=== PATIENT | male | born 1945 | race Hispanic/Latino ===

== ENCOUNTER 2016-12-04 06:16 | Inpatient (IN) | payer MEDICARE, BC ==
[2016-12-03 09:00] VITALS: BMI 27.3
--- NOTE | 2016-12-04 06:44 | CP.PCM.HP ---
History of Present Illness - History of Present Illness History of Present Illness: PCP: Dr Easton Orthopedic: Dr Jules Chief Complaint: Pain to the left Hip HPI: 71 years old male with hx of HTN, COPD, Herneated Lumbar disc and osteoarthritis comes with more than 2 years of left hip pain which is progressively becoming worse and not relieved with the Oral analgesics. He has failed conservative management and has come for an elective left Total Hip Replacement. He refers no fever, nausea, vomits, SOB , chest pain nor coughing. 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 FH: Referss Unknown family hx Allergies: ASA Medication: Lexapro 20mg Daily; Norvasc 10mg daily Present on Admission - Present on Admission Any Indicators Present on Admission: No History of DVT/PE: No History of Uncontrolled Diabetes: No Urinary Catheter: No Decubitus Ulcer Present: No Review of Systems - Constitutional Constitutional: absent: Anorexia, Chills, Fever, Headache, Lethargy - EENT Eyes: absent: Diplopia, Floaters, Requires Corrective Lenses, Sees Flashes Ears: absent: Decreased Hearing, Ear Discharge, Tinnitus Nose/Mouth/Throat: absent: Epistaxis, Nasal Congestion, Nasal Discharge, Nasal Obstruction, Sinus Pressure - Cardiovascular Cardiovascular: absent: Chest Pain, Dyspnea, Edema - Respiratory Respiratory: absent: Cough, Wheezing, Stridor, Chest Congestion - Gastrointestinal Gastrointestinal: absent: Constipation, Diarrhea, Nausea, Vomiting - Genitourinary Genitourinary: absent: Dysuria, Flank Pain, Hematuria, Urinary Frequency - Musculoskeletal Musculoskeletal: Arthralgias, Back Pain. absent: Muscle Weakness Additional comments: left hip pain - Integumentary Integumentary: absent: Photosensitivity, Pruritus, Rash, Skin Pain, Sores, Striae, Swelling - Neurological Neurological: absent: Confusion, Focal Weakness, Headaches, Weakness - Psychiatric Psychiatric: Depression. absent: Panic Attacks - Endocrine Endocrine: absent: Palpitations, Polydipsia, Polyphagia, Polyuria - Hematologic/Lymphatic Hematologic: absent: Easy Bleeding, Easy Bruising Past Patient History - Past Medical History & Family History Past Medical History?: Yes - Past Social History Smoking Status: Current Some Days Smoker Chewing Tobacco Use: No Cigar Use: No Alcohol: None Drugs: Denies Home Situation {Lives}: With Family - CARDIAC Hx Cardiac Disorders: Yes Hx Hypertension: Yes - PULMONARY Hx Respiratory Disorders: No - NEUROLOGICAL Hx Neurological Disorder: No - HEENT Hx HEENT Problems: No - RENAL Hx Chronic Kidney Disease: No - ENDOCRINE/METABOLIC Hx Endocrine Disorders: No - HEMATOLOGICAL/ONCOLOGICAL Hx Blood Disorders: No Hx Anemia: No Hx Blood Transfusions: No - INTEGUMENTARY Hx Dermatological Problems: No - MUSCULOSKELETAL/RHEUMATOLOGICAL Hx Musculoskeletal Disorders: Yes Hx Back Pain: Yes - GASTROINTESTINAL Hx Gastrointestinal Disorders: No - GENITOURINARY/GYNECOLOGICAL Hx Genitourinary Disorders: No - PSYCHIATRIC Hx Psychophysiologic Disorder: Yes Hx Depression: Yes - SURGICAL HISTORY Hx Surgeries: Yes Other/Comment: RIGHT HERNIA REPAIR;RIGHT SHOULDER ROTATOR CUFF REPAIR - ANESTHESIA Hx Anesthesia: Yes Hx Anesthesia Reactions: No Hx Malignant Hyperthermia: No Has any member of the family had a problem w/ anesthesia?: No Meds Allergies/Adverse Reactions: Allergies Allergy/AdvReac Type Severity Reaction Status Date / Time aspirin Allergy RASH Verified 12/03/16 09:00 Physical Exam - Constitutional Appears: No Acute Distress - Head Exam Head Exam: ATRAUMATIC, NORMAL INSPECTION, NORMOCEPHALIC - Eye Exam Eye Exam: EOMI, Normal appearance Pupil Exam: NORMAL ACCOMODATION, PERRL - ENT Exam ENT Exam: Mucous Membranes Moist - Neck Exam Neck exam: Positive for: Full Rom, Normal Inspection. Negative for: Lymphadenopathy, Tenderness - Respiratory Exam Respiratory Exam: Clear to Auscultation Bilateral. absent: Rales, Rhonchi, Wheezes - Cardiovascular Exam Cardiovascular Exam: REGULAR RHYTHM, RRR, +S1, +S2. absent: JVD - GI/Abdominal Exam GI & Abdominal Exam: Normal Bowel Sounds, Soft. absent: Mass, Organomegaly, Tenderness - Rectal Exam Rectal Exam: Deferred - Extremities Exam Extremities exam: Positive for: normal inspection. Negative for: calf tenderness Additional comments: left hip pain on Flexion and extension of the hip - Back Exam Back exam: NORMAL INSPECTION. absent: CVA tenderness (L), CVA tenderness (R) - Neurological Exam Neurological exam: Alert, CN II-XII Intact, Oriented x3, Reflexes Normal - Psychiatric Exam Psychiatric exam: Normal Affect, Normal Mood - Skin Skin Exam: Dry, Intact, Normal Color, Warm Assessment & Plan - Assessment and Plan (Free Text) Plan: 71 years old male with hx of HTN, COPD, Herneated Lumbar disc and osteoarthritis comes with more than 2 years of left hip pain which is progressively becoming worse and not relieved with the Oral analgesics. He has failed conservative management and has come for an elective left Total Hip Replacement. #. Left Hip Osteoarthritis with intractable hip pain - Consult [facility] Dr Jules - Orthopedic management - Pain management - DVT prophylaxis post surgery - OT/PT Post surgery #. HTN - Vasotec - Monitor blood pressure #. Depression. - Lexapro This patient was cleared for surgery by his PCP Dr Murphy This patient has HTN that is controlled with vasotec, All laboratory, Radiological , clinical and hemodynamic records were reviewed and I will clear this patient for surgery with mild to moderate Cardiac risk for surgery. - Date & Time Date: 12/04/16 Time: 06:44
[2016-12-04] MEDS ORDERED: SENSORCAINE 0.5% W/EPINEPHRINE 50ML MDV IJ ONE (07:18)
[2016-12-04] MEDS ORDERED: Propofol 10 mg/ml Inj (20 ML) ONE (07:24)
[2016-12-04] MEDS ORDERED: Rocuronium 10 mg/ml (5 ml) ONE ×3 (07:24→11:05)
[2016-12-04] MEDS ORDERED: Lidocaine 4% (Laryng-O-Jet) Kit MM ONE (07:25)
[2016-12-04] MEDS ORDERED: Etomidate 20 mg/10ml Inj IV ONE (07:25)
[2016-12-04] MEDS ORDERED: Succinylcholine 200 mg/10 ml Inj IV ONE (07:25)
[2016-12-04] MEDS ORDERED: Phenylephrine 10 mg/ml Inj ONE (07:29)
[2016-12-04] MEDS ORDERED: Absorbable Gelatin Sponge Size 100 ONE (07:35)
[2016-12-04] MEDS ORDERED: Lactated Ringer's 1,000 ML IV ONE ×3 (08:05→12:30)
[2016-12-04] MEDS ORDERED: Sodium Chloride 0.9% 500 ML IV ONE (08:30)
[2016-12-04] MEDS ORDERED: Neostigmine Methylsulfate 2 MG/2 ML ML IV ONE (12:04)
[2016-12-04] MEDS ORDERED: Naloxone 0.4 mg/ml Inj (Adult) IVP PRN (12:35)
[2016-12-04] MEDS ORDERED: HYDROmorphone 0.5 mg/0.5 ml ISec IVP PRN (13:25)
[2016-12-04] MEDS ORDERED: HYDROmorphone 0.5 mg/0.5 ml ISec ONE (13:28)
[2016-12-04] MEDS ORDERED: Albuterol HFA 90 mcg/actuation (8 g) INH STA (13:30)
[2016-12-04] MEDS ORDERED: BSS 15 ML SOL IR ONE (13:35)
[2016-12-04] MEDS ORDERED: BSS 15 ML 15 ML IR ONE (13:38)
[2016-12-04] MEDS: Albuterol-Ipratrop 3 mg / 0.5 (3 ml) UD INH SCH ×4 (14:14→21:15)
--- NOTE | 2016-12-04 14:20 | RAD ---
PROCEDURE: Left Hip X-ray Radiographs. HISTORY: s/p total hip replacement left hip COMPARISON: Intraoperative fluoroscopy 12/04/2016. FINDINGS: BONES: Pain status post left shoulder replacement with postop changes noted at the left hip soft tissues including skin hafsa. JOINTS: Joint replacement apparatus appears adequately placed. SOFT TISSUES: As above. OTHER FINDINGS: None. IMPRESSION: Status post left shoulder replacement.
[2016-12-04] MEDS: Fluticasone-Salmeterol 250-50mcg Diskus IH SCH ×2 (14:30→21:49)
--- NOTE | 2016-12-04 14:47 | RAD ---
PROCEDURE: Fluoroscopy over 1 hour HISTORY: LEFT HIP COMPARISON: 1 hour none TECHNIQUE: Standard FINDINGS: Total fluoroscopic time (continuous mode) utilized during the procedure: 33.3 seconds. IMPRESSION: Submitted images from the current procedure: 10.0
--- NOTE | 2016-12-04 16:45 | PCM.SURG1 ---
Surgeon's Initial Post Op Note - Surgeon's Notes Surgeon: Dhara Orthopedic Rn: Ebenezer Haywood Type of Anesthesia: General Endo, Block Regional Anesthesia Administered By: Dr Cristhian Renee Pre-Operative Diagnosis: Primary O/A L hip Operative Findings: Primary O/A L hip. synvotis L hip. contracturtes L hip, including iliopsoas tendon Post-Operative Diagnosis: same Operation Performed: L THR. femroal neck osteotomy. arthrotomy/synovectomy/ release iliopsoas tendon. autograft bone graft to acetabulum Specimen/Specimens Removed: bone/synovium Estimated Blood Loss: EBL {In ML}: 150 Blood Products Given: N/A Drains Used: No Drains Post-Op Condition: Good Date of Surgery/Procedure: 12/04/16 Time of Surgery/Procedure: 09:45 (time in room/anaesthesia indcution time m8:05)
[2016-12-04] MEDS: ceFAZolin 1 GM in Sodium Chloride 0.9% 100 ML IVPB SCH (16:56)
--- NOTE | 2016-12-04 17:26 | PCM.ANESB3 ---
Femoral Nerve Block - Femoral Nerve Block Date of Procedure: 12/04/16 Anesthesiologist: Maribeth Pre-Procedure Diagnosis: Left Hip OA Post-Procedure Diagnosis: Same Procedure Performed: Femoral Nerve Block Left - Procedure Femoral Nerve Block: The procedure was explained to the patient that it is for the post-operative pain management. Consent was obtained after a thorough discussion with the patient regarding the benefits and possible complications of local anesthetic block of the femoral nerve at the inguinal crease area. The patient was brought to the operating room and standard monitors were applied. Time-out was held with the circulating nurse to confirm the correct surgery and the appropriate block. Under general anesthesia, patient was placed in supine position with fully extended lower extremities and the _left groin exposed. The femoral artery was then carefully palpated. The ultrasound transducer was then applied to this area in the transverse plane and the femoral nerve was visualized lateral to the femoral artery and underneath the fascia iliaca. After thorough identification, the inguinal crease area was prepped with Chloraprep. At this point, a #22 gauge Stimuplex 2-inch needle was inserted immediately lateral to the femoral artery pulse at the inguinal crease and advanced perpendicularly. The needle was inserted to the ultrasound transducer in-plane towards the femoral nerve in a [id number] direction. Needle advancement was performed carefully under direct ultrasound visualization. Nerve stimulator was used and twitch of the quadriceps muscle was obtained at current of __0.3___ MA. After negative aspiration, __2___cc of __0.5___% ____ropivicaine ____was injected and this was followed with _28 cc of ____0.5___ % ropivicaine . Under ultrasound guidance the local anesthetics were observed spreading below fascia iliaca and around the femoral nerve. The needle was removed intact and sterile dressing was applied. The patient had stable vital signs. The patient tolerated the femoral nerve block well with stable vital signs and was prepared for subsequent surgery.
[2016-12-04] MEDS: PETROLATUM OU SCH (17:28)
[2016-12-04] MEDS: LANOLIN OU SCH (17:28)
[2016-12-04] MEDS: MINERAL OIL OU SCH (17:28)
[2016-12-04] MEDS: Lactated Ringer's 1,000 ML IV SCH (22:37)
[2016-12-05] MEDS: ceFAZolin 1 GM in Sodium Chloride 0.9% 100 ML IVPB SCH (01:28)
[2016-12-05] MEDS ORDERED: MINERAL OIL OU STA (04:39)
[2016-12-05] MEDS ORDERED: PETROLATUM OU STA (04:39)
[2016-12-05] MEDS ORDERED: LANOLIN OU STA (04:39)
[2016-12-05 05:13] LABS: HEMATOCRIT 34.9 % (35.0-51.0); MEAN CELL VOLUME 95.2 fl (80.0-94.0); MEAN CORPUSCULAR HEMOGLOBIN 32.2 pg (27.0-31.0); MEAN CORPUSCULAR HGB CONC 33.8 g/dL (33.0-37.0); RED CELL DISTRIBUTION WIDTH 12.9 % (11.5-14.5); WHITE BLOOD COUNT 12.2 K/uL (4.8-10.8)
[2016-12-05 05:23] LABS: BLOOD UREA NITROGEN 14 mg/dl (9-20); CALCIUM 7.8 mg/dL (8.4-10.2); CARBON DIOXIDE 23 mmol/L (22-30); CHLORIDE 103 mmol/L (98-107); GFR AFRICAN-AMERICAN > 60; GLUCOSE,RANDOM 121 mg/dL (75-110); POTASSIUM 4.2 MMOL/L (3.6-5.0); SODIUM 134 mmol/l (132-148)
[2016-12-05] MEDS: Albuterol-Ipratrop 3 mg / 0.5 (3 ml) UD INH SCH ×4 (08:40→19:42)
--- NOTE | 2016-12-05 08:42 | CP.PCM.PN ---
Subjective - Date & Time of Evaluation Date of Evaluation: 12/05/16 Time of Evaluation: 08:40 - Subjective Subjective: S- pt comfortable PD#1 - s/p R THR Objective - Vital Signs/Intake and Output Vital Signs (last 24 hours): Temp Pulse Resp BP Pulse Ox 98.3 F 102 H 18 136/68 94 L 12/05/16 08:00 12/05/16 08:00 12/05/16 08:00 12/05/16 08:00 12/05/16 08:00 Intake and Output: 12/05/16 12/05/16 06:59 18:59 Intake Total 1250 Balance 1250 - Medications Medications: Current Medications Albuterol/Ipratropium (Duoneb 3 Mg/0.5 Mg (3 Ml) Ud) 3 ml INH RQID [facility] Last Admin: 12/04/16 21:15 Dose: 3 ml Amlodipine Besylate (Norvasc) 5 mg PO DAILY [facility] Docusate Sodium (Colace) 100 mg PO BID [facility] Last Admin: 12/04/16 17:28 Dose: Not Given Escitalopram Oxalate (Lexapro) 20 mg PO HS [facility] Last Admin: 12/04/16 22:38 Dose: 20 mg Hydromorphone HCl (Dilaudid 0.2 Mg/Ml Head Still Operator) 0 mg IV PRN PRN; Protocol PRN Reason: Pain, severe (8-10) Last Admin: 12/04/16 13:04 Dose: 0.2 mg Lactated Ringer's (Lactated Ringer's) 1,000 mls @ 100 mls/hr IV .Q10H [facility] Last Admin: 12/04/16 22:37 Dose: 100 mls/hr Naloxone HCl (Narcan) 0.1 mg IVP Q2M PRN PRN Reason: Agitation Nicotine (Nicoderm Cq) 1 patch TD DAILY [facility] Last Admin: 12/04/16 22:38 Dose: 1 patch Pneumococcal Polyvalent Vaccine (Pneumovax 23 Vaccine) 0.5 ml IM .ONCE ONE Stop: 12/05/16 09:01 Fluticasone/Salmeterol (Advair Diskus 250/50) 1 puff IH Q12 [facility] Last Admin: 12/04/16 21:49 Dose: 1 puff Vitamin A/Vitamin D (Akwa Tears 2%-15%-83%) 1 applic OU TID [facility] Last Admin: 12/04/16 17:28 Dose: 1 applic Zolpidem Tartrate (Ambien) 5 mg PO HS PRN PRN Reason: Sleep Last Admin: 12/04/16 22:37 Dose: 5 mg - Labs Labs: 12/05/16 04:20 12/05/16 04:20 - Additional Findings Additional findings: O/E: stance/gait- defrred R hip wound benign pt with minimal ppost op discomfort Assessment and Plan - Assessment and Plan (Free Text) Assessment: A- s/p R THR P- weight bearing to tolerance orthopedically strable
[2016-12-05] MEDS: Fluticasone-Salmeterol 250-50mcg Diskus IH SCH ×2 (08:47→21:35)
--- NOTE | 2016-12-05 08:49 | CP.PCM.CON ---
History of Present Illness - History of Present Illness History of Present Illness: THE PATIENT IS A 71 YEAR OLD MALE WHO WAS ADMITTED YESTERDAY AND UNDERWENT A LEFT THR FOR SEVERE OA. HE ALSO HAS A HISTORY OF HYPERTENSION, COPD FROM SMOKING, DEPRESSION AND DISC DISEASE. HE ALSO HAD A RIGHT ROTATOR CUFF REPAIR IN THE PAST. I WAS ASKED TO SEE AND FOLLOW HIM ON THIS HOSPITAL STAY BY DR NEIL. HE DENIES CHEST PAIN, SOB OR ANY OTHER MAJOR MEDICAL PROBLEMS SUCH CAD OR DM. IT SHOULD BE NOTED THAT HE HAD MILD SINUS TACHYCARDIA UP TO 110 BPM YESTERDAY EVENING BUT HE HAD SURGICAL PAIN, RECEIVED ALBUTEROL AND WAS NPO PRIOR TO SURGERY. HIS HEART RATE SLOWED TO LESS THAN 100 BPM AFTER PAIN MEDICATIONS AND IV FLUIDS. Past Patient History - Past Medical History & Family History Past Medical History?: Yes - Past Social History Smoking Status: Current Some Days Smoker Chewing Tobacco Use: No Cigar Use: No Alcohol: None Drugs: Denies Home Situation {Lives}: With Family - CARDIAC Hx Cardiac Disorders: Yes Hx Hypertension: Yes - PULMONARY Hx Respiratory Disorders: No - NEUROLOGICAL Hx Neurological Disorder: No - HEENT Hx HEENT Problems: No - RENAL Hx Chronic Kidney Disease: No - ENDOCRINE/METABOLIC Hx Endocrine Disorders: No - HEMATOLOGICAL/ONCOLOGICAL Hx Blood Disorders: No Hx Anemia: No Hx Blood Transfusions: No - INTEGUMENTARY Hx Dermatological Problems: No - MUSCULOSKELETAL/RHEUMATOLOGICAL Hx Musculoskeletal Disorders: Yes Hx Back Pain: Yes - GASTROINTESTINAL Hx Gastrointestinal Disorders: No - GENITOURINARY/GYNECOLOGICAL Hx Genitourinary Disorders: No - PSYCHIATRIC Hx Psychophysiologic Disorder: Yes Hx Depression: Yes - SURGICAL HISTORY Hx Surgeries: Yes Other/Comment: RIGHT HERNIA REPAIR;RIGHT SHOULDER ROTATOR CUFF REPAIR - ANESTHESIA Hx Anesthesia: Yes Hx Anesthesia Reactions: No Hx Malignant Hyperthermia: No Has any member of the family had a problem w/ anesthesia?: No Meds Allergies/Adverse Reactions: Allergies Allergy/AdvReac Type Severity Reaction Status Date / Time aspirin Allergy RASH Verified 12/03/16 09:00 - Medications Medications: Current Medications Albuterol/Ipratropium (Duoneb 3 Mg/0.5 Mg (3 Ml) Ud) 3 ml INH RQID [facility] Last Admin: 12/05/16 08:40 Dose: Not Given Amlodipine Besylate (Norvasc) 5 mg PO DAILY [facility] Docusate Sodium (Colace) 100 mg PO BID [facility] Last Admin: 12/04/16 17:28 Dose: Not Given Escitalopram Oxalate (Lexapro) 20 mg PO HS [facility] Last Admin: 12/04/16 22:38 Dose: 20 mg Hydromorphone HCl (Dilaudid 0.2 Mg/Ml Cardiac Nurse Specialist) 0 mg IV PRN PRN; Protocol PRN Reason: Pain, severe (8-10) Last Admin: 12/04/16 13:04 Dose: 0.2 mg Lactated Ringer's (Lactated Ringer's) 1,000 mls @ 100 mls/hr IV .Q10H [facility] Last Admin: 12/04/16 22:37 Dose: 100 mls/hr Naloxone HCl (Narcan) 0.1 mg IVP Q2M PRN PRN Reason: Agitation Nicotine (Nicoderm Cq) 1 patch TD DAILY [facility] Last Admin: 12/04/16 22:38 Dose: 1 patch Pneumococcal Polyvalent Vaccine (Pneumovax 23 Vaccine) 0.5 ml IM .ONCE ONE Stop: 12/05/16 09:01 Fluticasone/Salmeterol (Advair Diskus 250/50) 1 puff IH Q12 [facility] Last Admin: 12/04/16 21:49 Dose: 1 puff Vitamin A/Vitamin D (Akwa Tears 2%-15%-83%) 1 applic OU TID [facility] Last Admin: 12/04/16 17:28 Dose: 1 applic Zolpidem Tartrate (Ambien) 5 mg PO HS PRN PRN Reason: Sleep Last Admin: 12/04/16 22:37 Dose: 5 mg Physical Exam - Respiratory Exam Respiratory Exam: Clear to Auscultation Bilateral - Cardiovascular Exam Cardiovascular Exam: REGULAR RHYTHM, +S1, +S2 - Additional Findings Additional findings: INSIDE WIREMAN SINUS RHYTHM, R 95 A2 LEAD EKG SINUS, RBBB Results - Vital Signs Recent Vital Signs: Last Vital Signs Temp 98.3 F 12/05/16 08:00 Pulse 102 H 12/05/16 08:00 Resp 18 12/05/16 08:00 BP 136/68 12/05/16 08:00 Pulse Ox 94 L 12/05/16 08:00 - Labs Result Diagrams: 12/05/16 04:20 12/05/16 04:20 Labs: Laboratory Results - last 24 hr 12/04/16 12/04/16 12/05/16 06:30 12:30 04:20 WBC 12.2 H RBC 3.67 L Hgb 11.8 L Hct 34.9 L MCV 95.2 H MCH 32.2 H MCHC 33.8 RDW 12.9 Plt Count 161 Sodium Potassium Chloride Carbon Dioxide Anion Gap BUN Creatinine Est GFR ( Amer) Est GFR (Non-Af Amer) Random Glucose Calcium Blood Type AB POSITIVE Blood Type Confirm AB POSITIVE Antibody Screen Negative Crossmatch See Detail BBK History Checked No verified bt 12/05/16 04:20 WBC RBC Hgb Hct MCV MCH MCHC RDW Plt Count Sodium 134 Potassium 4.2 Chloride 103 Carbon Dioxide 23 Anion Gap 12 BUN 14 Creatinine 0.8 Est GFR ( Amer) > 60 Est GFR (Non-Af Amer) > 60 Random Glucose 121 H Calcium 7.8 L Blood Type Blood Type Confirm Antibody Screen Crossmatch BBK History Checked Assessment & Plan - Assessment and Plan (Free Text) Assessment: LEFT THR HYPERTENSION COPD Plan: CONTINUE AMLODIPINE, PAIN MEDICATIONS, LEXAPRO AND IV FLUIDS FOR REHAB
[2016-12-05] MEDS: Lactated Ringer's 1,000 ML IV SCH ×2 (08:51→18:17)
[2016-12-05] MEDS ORDERED: Pneumococcal 23-Valent Vaccine IM ONE (09:00)
[2016-12-05] MEDS: LANOLIN OU SCH (11:03)
[2016-12-05] MEDS: MINERAL OIL OU SCH (11:03)
[2016-12-05] MEDS: PETROLATUM OU SCH (11:03)
--- NOTE | 2016-12-05 11:20 | CARD ---
APPROVED REPORT EKG Measurement Heart [id number] IN [id number] <Conclusion> Normal sinus rhythm Right bundle branch block Abnormal ECG
[2016-12-05] MEDS: Mineral Oil/White Petrolatum Ophth Oint OU SCH ×2 (12:59→16:43)
[2016-12-05] MEDS ORDERED: Enoxaparin 40 mg Syringe SC STA (13:22)
--- NOTE | 2016-12-05 13:24 | CP.PCM.PN ---
Subjective - Date & Time of Evaluation Date of Evaluation: 12/05/16 Time of Evaluation: 14:00 - Subjective Subjective: Patient seen and examined bedside. Complains of some left hip discomfort.Tachycardic HR 108, afebrile with chest congestion and coughing spells. Patient is active smoker and currently with scattered left hemithorax wheezing. no active issues overnight\ Hgb 11 Objective - Vital Signs/Intake and Output Vital Signs (last 24 hours): Temp Pulse Resp BP Pulse Ox 98.9 F 108 H 18 122/57 L 90 L 12/05/16 12:00 12/05/16 12:00 12/05/16 12:00 12/05/16 12:00 12/05/16 12:00 Intake and Output: 12/05/16 12/05/16 06:59 18:59 Intake Total 1250 Balance 1250 - Medications Medications: Current Medications Albuterol/Ipratropium (Duoneb 3 Mg/0.5 Mg (3 Ml) Ud) 3 ml INH RQID [facility] Last Admin: 12/05/16 11:24 Dose: 3 ml Amlodipine Besylate (Norvasc) 5 mg PO DAILY [facility] Last Admin: 12/05/16 08:48 Dose: 5 mg Artificial Tears (Lacri-Lube) 1 applic OU TID [facility] Last Admin: 12/05/16 12:59 Dose: 1 applic Docusate Sodium (Colace) 100 mg PO BID [facility] Last Admin: 12/05/16 08:48 Dose: 100 mg Enoxaparin Sodium (Lovenox) 40 mg SC STAT [facility] PRN Reason: Protocol Stop: 12/05/16 13:23 Enoxaparin Sodium (Lovenox) 40 mg SC DAILY [facility] PRN Reason: Protocol Escitalopram Oxalate (Lexapro) 20 mg PO HS [facility] Last Admin: 12/04/16 22:38 Dose: 20 mg Lactated Ringer's (Lactated Ringer's) 1,000 mls @ 100 mls/hr IV .Q10H [facility] Last Admin: 12/05/16 08:51 Dose: 100 mls/hr Naloxone HCl (Narcan) 0.1 mg IVP Q2M PRN PRN Reason: Agitation Nicotine (Nicoderm Cq) 1 patch TD DAILY [facility] Last Admin: 12/05/16 08:47 Dose: 1 patch Fluticasone/Salmeterol (Advair Diskus 250/50) 1 puff IH Q12 [facility] Last Admin: 12/05/16 08:47 Dose: 1 puff Zolpidem Tartrate (Ambien) 5 mg PO HS PRN PRN Reason: Sleep Last Admin: 12/04/16 22:37 Dose: 5 mg - Labs Labs: 12/05/16 04:20 12/05/16 04:20 - Constitutional Appears: Non-toxic, No Acute Distress - Head Exam Head Exam: ATRAUMATIC, NORMAL INSPECTION, NORMOCEPHALIC - Eye Exam Eye Exam: EOMI, Normal appearance, PERRL Pupil Exam: NORMAL ACCOMODATION - ENT Exam ENT Exam: Mucous Membranes Moist, Normal Exam - Neck Exam Neck Exam: Full ROM, Normal Inspection - Respiratory Exam Respiratory Exam: Rhonchi (diffuse ), Wheezes (left hemithorax). absent: Accessory Muscle Use - Cardiovascular Exam Cardiovascular Exam: Tachycardia, RRR, +S1, +S2. absent: JVD - GI/Abdominal Exam GI & Abdominal Exam: Soft, Normal Bowel Sounds. absent: Distended, Guarding, Tenderness, Rebound - Rectal Exam Rectal Exam: Deferred - Extremities Exam Extremities Exam: Normal Capillary Refill. absent: Calf Tenderness, Pedal Edema Additional comments: left hip surgical incision with acquacell dressing in place - Back Exam Back Exam: NORMAL INSPECTION - Neurological Exam Neurological Exam: Alert, Awake, CN II-XII Intact, Oriented x3 - Psychiatric Exam Psychiatric exam: Normal Affect - Skin Skin Exam: Dry, Intact, Normal Color, Warm Assessment and Plan - Assessment and Plan (Free Text) Assessment: 71 years old male with hx of HTN, COPD, Herneated Lumbar disc and osteoarthritis comes with more than 2 years of left hip pain which is progressively becoming worse and not relieved with the Oral analgesics. He has failed conservative management and has come for an elective left Total Hip Replacement. today post Left THR #1 1.Left Hip Osteoarthritis s/p left THR #1 pain is controlled. D/c [employer]MENT[employer]AF[employer] INTERN pump and start Percoset PRN Orthopedia Dr Jules following Start PT with weight beraing as tolerated with crutches or walker as per ortho DVt prohylaxis with Lovenox and SCD incentive spirometry 2. COPD patient is active smoker and with wheezing today start Duonebs RTC and mucinex CXR incentive spirometry 3. HTN continue Vasotec controlled 4. Depression on Lexapro 5. DVt prophylaxis SCD and Lovenox
--- NOTE | 2016-12-05 15:50 | OP ---
PROCEDURE DATE: 12/04/2016 PREOPERATIVE DIAGNOSIS: Primary osteoarthritis of the left hip. POSTOPERATIVE DIAGNOSIS: Primary osteoarthritis of the left hip. PROCEDURE: 1. Left total hip replacement arthroplasty, anterior approach. 2. Femoral neck osteotomy. 3. Release of iliopsoas tendon. 4. Autograft and bone graft to the acetabulum. SURGEON: Dr. Enrique Jules MD ASSOCIATE: Daisy Sy, certified registered nursing regulatory assistant. SECOND DOUBLE END TENONER OPERATOR: . TYPE OF ANESTHESIA: General, endotracheal and regional anesthesia. ANESTHESIA BY: Cristhian Stahl MD COMPLICATIONS: No complications. DRAINS: No drains. ESTIMATED BLOOD LOSS: 150 cc. OPERATIVE INDICATIONS: You Gutiérrez is a 72-year-old gentleman, who is a referral from Dr. Cole Bhatt. The patient presents with severe pain and restricted range of motion of the left hip, which has been for a long period of time. The patient has failed a conservative course consisting of activity modification, anti-inflammatory medication therapy. Pros, cons, risks, and benefits of surgical approach were discussed. The possibility of mechanical failure, infection, thromboembolic disease, possibility of secondary or tertiary surgery is discussed. The patient can no longer withstand the discomfort and wished the surgery to be accomplished. Alternative procedures including activity modification and benign neglect were discussed. The patient opts for hip replacement arthroplasty. The patient is fully aware of the differences between the anterior and posterior approach and wished the anterior approach total hip replacement arthroplasty. OPERATIVE PROCEDURE: After having obtained informed consent in the above fashion with satisfactory induction of general and regional anesthesia, after having identified side, site, and procedure and critical pause/time-out, the patient identified as You Gutiérrez is placed in the [facility] traction positioner with the contralateral traction. The left lower extremity was prepped and free-draped in usual fashion for left extremity surgery. the anterior superior iliac spine, greater trochanter. Left hip was prepped and draped in usual fashion for the lower extremity surgery. Under the surgeon's direction, the fluoroscope was positioned, video images were generated and therapeutic decisions were made therefrom. Incisions were accomplished 3 fingerbreadths posterior to the ASIS and one fingerbreadth distal. The incision is superficial to the tensor fascia femoris muscle. It is approximately 4.5 to 5 inches in extent. The skin incision was carried down to the skin and subcutaneous tissue. The muscle is taken down from the fascia using the pickups. This having been accomplished, the Medacta retractor was placed and the fascia between the posterior aspect of the rectus femoris is identified. Hemostasis was controlled with electrocautery. The Medacta retractor was placed deep. The fascia was identified and divided. The lateral femoral circumflex vessels and anterior branch of the lateral femoral circumflex vessels were identified. These are controlled with division and they are clamped with tonsil clamps and control of suture ligature. This having been accomplished, the triangular capsulotomy after the reflected head of the rectus femoris is elevated. The triangle of was brought down to the area of the lesser trochanter and brought across the intertubercular eminence. The having been accomplished, the flap was tagged and brought laterally and Medacta retractors were placed. Verification of position had been accomplished on image intensification views of both the left hip and the contralateral right hip. This having been accomplished the femoral neck osteotomy was accomplished at approximately 18 mm above the lesser trochanter. This having been accomplished, the femoral neck osteotomy was accomplished, the head and neck removed from acetabulum. At this point of time, the acetabulum is debrided, arthrotomy and debridement of labrum was accomplished. So, was carried out at 58 mm and approximately 45 degrees of abduction and 10 degrees of anteversion. This having been accomplished, the reamings are denuded of articular cartilage and this having been accomplished Verification of the position was offered on image intensification. The position was found to be at this point of 58 cm was impacted at approximately 45 degrees of abduction and 10 degrees of anteversion. It should be noted that the reamings were denuded of articular and cartilage had been accomplished. This having been accomplished, attention was turned to the femur. The femur is found to be contracted and at this point with the extremity in external rotation, the tibiofemoral ligament is released and the ischiofemoral ligament is released as well. The area of the conjoint tendon is released and a portion of the iliofemoral is released as well. Hemostasis is controlled with the Aquamantys. At this point, the humerus is mobilized, the retractor was placed medially as well as posteriorly. The canal was found, the neck and trochanter was removed and the paulette was used to find the canal. Using the rasp, the canal was found, was carried to #4 noncemented femoral component. was accomplished with a neutral head and outer bearing. The hip was reduced and found to be stable in all planes. At this point, the iliopsoas tendon is released again to offer release of the contractures. The femur is again exposed. The #4 Medacta was impacted, 28-mm head with is accomplished. The dual mobility hip was reduced and found to be stable in all planes. The wound was thoroughly irrigated. A great deal of time was spent to obtain hemostasis with Aquamantys. Hemostasis having been controlled, the wound was thoroughly irrigated. Verification of position was offered on image intensification views. This having been accomplished, closure of the tensor femoris fascia was accomplished with 0 quill taking great care to avoid injury to the lateral femoral cutaneous nerve as well as closure with quill, Vicryl, hafsa for skin and compression dressing is applied. Verification of the position was offered on image intensification views. Enrique Jules MD
[2016-12-05] MEDS: Oxycodone/Acetaminophen 5/325 mg Tab PO PRN ×2 (18:11→21:39)
[2016-12-05] MEDS: guaiFENesin-DM 600-30 mg ER Tab PO SCH (18:18)
[2016-12-06] MEDS: Lactated Ringer's 1,000 ML IV SCH ×3 (00:26→16:46)
[2016-12-06 04:47] LABS: HEMATOCRIT 33.5 % (35.0-51.0); MEAN CELL VOLUME 95.2 fl (80.0-94.0); MEAN CORPUSCULAR HEMOGLOBIN 31.8 pg (27.0-31.0); MEAN CORPUSCULAR HGB CONC 33.4 g/dL (33.0-37.0); RED CELL DISTRIBUTION WIDTH 13.3 % (11.5-14.5); WHITE BLOOD COUNT 11.7 K/uL (4.8-10.8)
[2016-12-06 05:01] LABS: BLOOD UREA NITROGEN 9 mg/dl (9-20); CALCIUM 7.9 mg/dL (8.4-10.2); CARBON DIOXIDE 26 mmol/L (22-30); CHLORIDE 103 mmol/L (98-107); GFR AFRICAN-AMERICAN > 60; GLUCOSE,RANDOM 130 mg/dL (75-110); POTASSIUM 3.9 MMOL/L (3.6-5.0); SODIUM 133 mmol/l (132-148)
--- NOTE | 2016-12-06 07:16 | CP.PCM.PN ---
Subjective - Date & Time of Evaluation Date of Evaluation: 12/06/16 Time of Evaluation: 09:20 - Subjective Subjective: Patient seen and examined bedside. Still with some left hip discomfort Tachycardic HR 106 Tmax 100.1 O2 Sat 90 % on 2 L O2 via NC WBC 11 K with episodeds of cough and chest congestion , unable to expectorate No acute issues overnight Objective - Vital Signs/Intake and Output Vital Signs (last 24 hours): Temp Pulse Resp BP Pulse Ox 99.2 F 106 H 16 131/67 90 L 12/06/16 05:18 12/06/16 05:18 12/06/16 05:18 12/06/16 05:18 12/06/16 05:18 - Medications Medications: Current Medications Albuterol/Ipratropium (Duoneb 3 Mg/0.5 Mg (3 Ml) Ud) 3 ml INH RQID [facility] Last Admin: 12/05/16 19:42 Dose: 3 ml Amlodipine Besylate (Norvasc) 5 mg PO DAILY [facility] Last Admin: 12/05/16 08:48 Dose: 5 mg Artificial Tears (Lacri-Lube) 1 applic OU TID [facility] Last Admin: 12/05/16 16:43 Dose: 1 applic Docusate Sodium (Colace) 100 mg PO BID [facility] Last Admin: 12/05/16 18:18 Dose: 100 mg Enoxaparin Sodium (Lovenox) 40 mg SC DAILY [facility] PRN Reason: Protocol Escitalopram Oxalate (Lexapro) 20 mg PO HS [facility] Last Admin: 12/05/16 21:36 Dose: 20 mg Guaifenesin/Dextromethorphan (Mucinex-Dm 600-30 Mg) 1 tab PO BID [facility] Last Admin: 12/05/16 18:18 Dose: 1 tab Lactated Ringer's (Lactated Ringer's) 1,000 mls @ 100 mls/hr IV .Q10H [facility] Last Admin: 12/06/16 00:26 Dose: 100 mls/hr Naloxone HCl (Narcan) 0.1 mg IVP Q2M PRN PRN Reason: Agitation Nicotine (Nicoderm Cq) 1 patch TD DAILY [facility] Last Admin: 12/05/16 08:47 Dose: 1 patch Oxycodone/Acetaminophen (Percocet 5/325 Mg Tab) 1 tab PO Q4 PRN PRN Reason: Pain, moderate (4-7) Stop: 12/08/16 13:25 Last Admin: 12/05/16 21:39 Dose: 1 tab Oxycodone/Acetaminophen (Percocet 5/325 Mg Tab) 2 tab PO Q6 PRN PRN Reason: Pain, severe (8-10) Stop: 12/08/16 13:25 Last Admin: 12/05/16 18:11 Dose: 2 tab Fluticasone/Salmeterol (Advair Diskus 250/50) 1 puff IH Q12 [facility] Last Admin: 12/05/16 21:35 Dose: 1 puff Zolpidem Tartrate (Ambien) 5 mg PO HS PRN PRN Reason: Sleep Last Admin: 12/05/16 21:39 Dose: 5 mg - Labs Labs: 12/06/16 04:10 12/06/16 04:10 - Constitutional Appears: Non-toxic, No Acute Distress - Head Exam Head Exam: ATRAUMATIC, NORMAL INSPECTION, NORMOCEPHALIC - Eye Exam Eye Exam: EOMI, Normal appearance, PERRL Pupil Exam: NORMAL ACCOMODATION - ENT Exam ENT Exam: Mucous Membranes Moist, Normal Exam - Neck Exam Neck Exam: Full ROM, Normal Inspection - Respiratory Exam Respiratory Exam: Rhonchi, Wheezes (scattered wheezing ). absent: Accessory Muscle Use, Prolonged Expiratory Phase - Cardiovascular Exam Cardiovascular Exam: Tachycardia, REGULAR RHYTHM, +S1, +S2. absent: JVD - GI/Abdominal Exam GI & Abdominal Exam: Soft, Normal Bowel Sounds. absent: Distended, Guarding, Tenderness, Rebound - Rectal Exam Rectal Exam: Deferred - Extremities Exam Extremities Exam: Full ROM, Normal Inspection. absent: Calf Tenderness, Pedal Edema Additional comments: left hip surgical incision with acquacell dressing in place - Back Exam Back Exam: NORMAL INSPECTION - Neurological Exam Neurological Exam: Alert, Awake, CN II-XII Intact, Oriented x3 - Psychiatric Exam Psychiatric exam: Normal Affect - Skin Skin Exam: Dry, Intact, Normal Color, Warm Assessment and Plan - Assessment and Plan (Free Text) Assessment: 71 years old male with hx of HTN, COPD, Herneated Lumbar disc and osteoarthritis comes with more than 2 years of left hip pain which is progressively becoming worse and not relieved with the Oral analgesics. He has failed conservative management and has come for an elective left Total Hip Replacement. today post Left THR #1 1.Left Hip Osteoarthritis s/p left THR #2 pain is controlled with Percoset PRN Orthopedics Dr Jules following continue PT with weight bearing as tolerated with crutches or walker as per ortho DVt prohylaxis with Lovenox and SCD incentive spirometry 2. COPD patient is active smoker and with wheezing, rhonchi, coughing spells nad chest congestion , unable to expectorate started Duonebs RTC and mucinex CXR shos crowding of tright middle lobe ( pendoing official report ) Wilda nue advair incentive spirometry 3. HTN continue norvasc controlled 4. Depression on Lexapro 5. DVt prophylaxis SCD and Lovenox
[2016-12-06] MEDS: Albuterol-Ipratrop 3 mg / 0.5 (3 ml) UD INH SCH ×4 (07:35→19:09)
[2016-12-06] MEDS: Oxycodone/Acetaminophen 5/325 mg Tab PO PRN ×3 (09:04→21:17)
[2016-12-06] MEDS: Fluticasone-Salmeterol 250-50mcg Diskus IH SCH ×2 (09:05→21:19)
[2016-12-06] MEDS: Mineral Oil/White Petrolatum Ophth Oint OU SCH ×3 (09:05→17:12)
[2016-12-06] MEDS: guaiFENesin-DM 600-30 mg ER Tab PO SCH ×2 (09:06→17:13)
[2016-12-06] MEDS: Enoxaparin 40 mg Syringe SC SCH (09:06)
--- NOTE | 2016-12-06 10:24 | RAD ---
PROCEDURE: CHEST RADIOGRAPH, 1 VIEW. Portable study 07:20. HISTORY: COPD COMPARISON: None available. FINDINGS: LUNGS: Clear. PLEURA: No pneumothorax or pleural fluid seen. CARDIOVASCULAR: No radiographic findings to suggest acute or significant cardiovascular disease. OSSEOUS STRUCTURES: No significant abnormalities. VISUALIZED UPPER ABDOMEN: Normal. OTHER FINDINGS: None. IMPRESSION: No active disease.
--- NOTE | 2016-12-06 13:10 | CP.PCM.PN ---
Subjective - Date & Time of Evaluation Date of Evaluation: 12/06/16 Time of Evaluation: 13:10 - Subjective Subjective: s- PT RESTING COMFORTABLY/minimal post op disocmfort Objective - Vital Signs/Intake and Output Vital Signs (last 24 hours): Temp Pulse Resp BP Pulse Ox 99.1 F 98 H 18 125/65 97 12/06/16 12:24 12/06/16 12:24 12/06/16 12:24 12/06/16 12:24 12/06/16 12:24 - Medications Medications: Current Medications Albuterol/Ipratropium (Duoneb 3 Mg/0.5 Mg (3 Ml) Ud) 3 ml INH RQID [facility] Last Admin: 12/06/16 11:05 Dose: 3 ml Amlodipine Besylate (Norvasc) 5 mg PO DAILY [facility] Last Admin: 12/06/16 09:07 Dose: 5 mg Artificial Tears (Lacri-Lube) 1 applic OU TID [facility] Last Admin: 12/06/16 09:05 Dose: 1 applic Docusate Sodium (Colace) 100 mg PO BID [facility] Last Admin: 12/06/16 09:05 Dose: 100 mg Enoxaparin Sodium (Lovenox) 40 mg SC DAILY [facility] PRN Reason: Protocol Last Admin: 12/06/16 09:06 Dose: 40 mg Escitalopram Oxalate (Lexapro) 20 mg PO HS [facility] Last Admin: 12/05/16 21:36 Dose: 20 mg Guaifenesin/Dextromethorphan (Mucinex-Dm 600-30 Mg) 1 tab PO BID [facility] Last Admin: 12/06/16 09:06 Dose: 1 tab Lactated Ringer's (Lactated Ringer's) 1,000 mls @ 100 mls/hr IV .Q10H [facility] Last Admin: 12/06/16 09:09 Dose: 100 mls/hr Naloxone HCl (Narcan) 0.1 mg IVP Q2M PRN PRN Reason: Agitation Nicotine (Nicoderm Cq) 1 patch TD DAILY [facility] Last Admin: 12/06/16 09:06 Dose: 1 patch Oxycodone/Acetaminophen (Percocet 5/325 Mg Tab) 1 tab PO Q4 PRN PRN Reason: Pain, moderate (4-7) Stop: 12/08/16 13:25 Last Admin: 12/06/16 09:04 Dose: 1 tab Oxycodone/Acetaminophen (Percocet 5/325 Mg Tab) 2 tab PO Q6 PRN PRN Reason: Pain, severe (8-10) Stop: 12/08/16 13:25 Last Admin: 12/05/16 18:11 Dose: 2 tab Fluticasone/Salmeterol (Advair Diskus 250/50) 1 puff IH Q12 [facility] Last Admin: 12/06/16 09:05 Dose: 1 puff Zolpidem Tartrate (Ambien) 5 mg PO HS PRN PRN Reason: Sleep Last Admin: 12/05/16 21:39 Dose: 5 mg - Labs Labs: 12/06/16 04:10 12/06/16 04:10 - Additional Findings Additional findings: Obj syusytemic wnl Muscloskeltal stance/gait-deferred orthopedically stable dressing dry and intact Assessment and Plan - Assessment and Plan (Free Text) Assessment: A- orthopedically stable s/p L THR P orthopedically stable for rehab transfer
[2016-12-07] MEDS: Oxycodone/Acetaminophen 5/325 mg Tab PO PRN (05:38)
[2016-12-07] MEDS: Albuterol-Ipratrop 3 mg / 0.5 (3 ml) UD INH SCH ×2 (07:42→11:33)
[2016-12-07 08:02] LABS: HEMATOCRIT 32.5 % (35.0-51.0); MEAN CELL VOLUME 94.7 fl (80.0-94.0); MEAN CORPUSCULAR HEMOGLOBIN 32.4 pg (27.0-31.0); MEAN CORPUSCULAR HGB CONC 34.2 g/dL (33.0-37.0); RED CELL DISTRIBUTION WIDTH 12.6 % (11.5-14.5); WHITE BLOOD COUNT 12.1 K/uL (4.8-10.8)
[2016-12-07] MEDS: Fluticasone-Salmeterol 250-50mcg Diskus IH SCH (08:34)
[2016-12-07] MEDS: Mineral Oil/White Petrolatum Ophth Oint OU SCH (08:35)
[2016-12-07] MEDS: Enoxaparin 40 mg Syringe SC SCH (08:35)
[2016-12-07] MEDS: guaiFENesin-DM 600-30 mg ER Tab PO SCH (08:35)
--- NOTE | 2016-12-07 10:07 | CP.PCM.PN ---
Subjective - Date & Time of Evaluation Date of Evaluation: 12/07/16 Time of Evaluation: 09:45 - Subjective Subjective: S- pt markedly improved/miinmal post op discomfort Objective - Vital Signs/Intake and Output Vital Signs (last 24 hours): Temp Pulse Resp BP Pulse Ox 98.6 F 97 H 18 125/54 L 95 12/07/16 08:25 12/07/16 08:36 12/07/16 08:25 12/07/16 08:36 12/07/16 08:25 Intake and Output: 12/07/16 12/07/16 06:59 18:59 Intake Total 250 Output Total 600 Balance -350 - Medications Medications: Current Medications Albuterol/Ipratropium (Duoneb 3 Mg/0.5 Mg (3 Ml) Ud) 3 ml INH RQID [facility] Last Admin: 12/07/16 07:42 Dose: 3 ml Amlodipine Besylate (Norvasc) 5 mg PO DAILY [facility] Last Admin: 12/07/16 08:36 Dose: 5 mg Artificial Tears (Lacri-Lube) 1 applic OU TID [facility] Last Admin: 12/07/16 08:35 Dose: 1 applic Docusate Sodium (Colace) 100 mg PO BID [facility] Last Admin: 12/07/16 08:34 Dose: 100 mg Enoxaparin Sodium (Lovenox) 40 mg SC DAILY [facility] PRN Reason: Protocol Last Admin: 12/07/16 08:35 Dose: 40 mg Escitalopram Oxalate (Lexapro) 20 mg PO HS [facility] Last Admin: 12/06/16 21:18 Dose: 20 mg Guaifenesin/Dextromethorphan (Mucinex-Dm 600-30 Mg) 1 tab PO BID [facility] Last Admin: 12/07/16 08:35 Dose: 1 tab Lactated Ringer's (Lactated Ringer's) 1,000 mls @ 100 mls/hr IV .Q10H [facility] Last Admin: 12/06/16 16:46 Dose: Not Given Naloxone HCl (Narcan) 0.1 mg IVP Q2M PRN PRN Reason: Agitation Nicotine (Nicoderm Cq) 1 patch TD DAILY [facility] Last Admin: 12/07/16 08:36 Dose: 1 patch Oxycodone/Acetaminophen (Percocet 5/325 Mg Tab) 1 tab PO Q4 PRN PRN Reason: Pain, moderate (4-7) Stop: 12/08/16 13:25 Last Admin: 12/07/16 05:38 Dose: 1 tab Oxycodone/Acetaminophen (Percocet 5/325 Mg Tab) 2 tab PO Q6 PRN PRN Reason: Pain, severe (8-10) Stop: 12/08/16 13:25 Last Admin: 12/06/16 13:52 Dose: 2 tab Fluticasone/Salmeterol (Advair Diskus 250/50) 1 puff IH Q12 [facility] Last Admin: 12/07/16 08:34 Dose: 1 puff Zolpidem Tartrate (Ambien) 5 mg PO HS PRN PRN Reason: Sleep Last Admin: 12/06/16 21:17 Dose: 5 mg - Labs Labs: 12/07/16 07:30 12/06/16 04:10 - Additional Findings Additional findings: Obj systemic- wnl mild abdominal distention;although improved Musculoskekltal- stance/gait- defrred L hip wound benign N/V intact no gross/ progressive deficits \ Assessment and Plan - Assessment and Plan (Free Text) Assessment: A- s/p L THR P- orthopedically stable for transfer to [facility]
--- NOTE | 2016-12-07 10:37 | CP.PCM.DIS ---
Provider - Provider Date of Admission: 12/04/16 13:37 Attending physician: Darrius Lui Primary care physician: Enrique Jules III, MD Consults: ortho consult Cardiology consult Time Spent in preparation of Discharge (in minutes): 15 Hospital Course - Lab Results Lab Results: Most Recent Lab Values WBC 12.1 K/uL (4.8-10.8) H 12/07/16 07:30 RBC 3.43 Mil/uL (4.40-5.90) L 12/07/16 07:30 Hgb 11.1 g/dL (12.0-18.0) L 12/07/16 07:30 Hct 32.5 % (35.0-51.0) L 12/07/16 07:30 MCV 94.7 fl (80.0-94.0) H 12/07/16 07:30 MCH 32.4 pg (27.0-31.0) H 12/07/16 07:30 MCHC 34.2 g/dL (33.0-37.0) 12/07/16 07:30 RDW 12.6 % (11.5-14.5) 12/07/16 07:30 Plt Count 167 K/uL (130-400) 12/07/16 07:30 Sodium 133 mmol/l (132-148) 12/06/16 04:10 Potassium 3.9 MMOL/L (3.6-5.0) 12/06/16 04:10 Chloride 103 mmol/L (98-107) 12/06/16 04:10 Carbon Dioxide 26 mmol/L (22-30) 12/06/16 04:10 Anion Gap 8 (10-20) L 12/06/16 04:10 BUN 9 mg/dl (9-20) 12/06/16 04:10 Creatinine 0.7 mg/dL (0.8-1.5) L 12/06/16 04:10 Est GFR ( Amer) > 60 12/06/16 04:10 Est GFR (Non-Af Amer) > 60 12/06/16 04:10 Random Glucose 130 mg/dL (75-110) H 12/06/16 04:10 Calcium 7.9 mg/dL (8.4-10.2) L 12/06/16 04:10 Blood Type AB POSITIVE 12/04/16 06:30 Blood Type Confirm AB POSITIVE 12/04/16 12:30 Antibody Screen Negative 12/04/16 06:30 Crossmatch See Detail 12/04/16 06:30 BBK History Checked No verified bt 12/04/16 06:30 - Hospital Course Hospital Course: 71 years old male with hx of HTN, COPD, Herneated Lumbar disc and osteoarthritis comes with more than 2 years of left hip pain which is progressively becoming worse and not relieved with the Oral analgesics. He has failed conservative management and has come for an elective left Total Hip Replacement. today post Left THR #3.Post op patient doing well, pain is controlled. Pt consulted and patient referred to [facility].he also noted to have some wheezing with cought congestion post op and was started on Duonebs, mucinex, advair. Patient is hemodynamically stable. Will discharge patient to [facility] Follow up with Dr. Jules in 1 week 1.Left Hip Osteoarthritis s/p left THR #3 pain is controlled with Percoset PRN Orthopedics Dr Jules following continue PT with weight bearing as tolerated with crutches or walker as per ortho DVt prohylaxis with Lovenox and SCD Continue incentive spirometry Will d/c to [facility] for PT 2. COPD patient is active smoker and with wheezing, rhonchi, coughing spells and chest congestion , unable to expectorate started Duonebs RTC and mucinex CXR showed no active disease Continue advair incentive spirometry Counselled on smoking cessation 3. HTN continue norvasc controlled 4. Depression on Lexapro 5. DVt prophylaxis SCD and Lovenox Discharge Exam - Head Exam Head Exam: ATRAUMATIC, NORMAL INSPECTION, NORMOCEPHALIC - Eye Exam Eye Exam: EOMI, Normal appearance, PERRL Pupil Exam: NORMAL ACCOMODATION - ENT Exam ENT Exam: Mucous Membranes Moist, Normal Exam - Neck Exam Neck exam: Full Rom, Normal Inspection - Respiratory Exam Respiratory Exam: Clear to PA & Lateral, Rhonchi (bilateral), NORMAL BREATHING PATTERN. absent: Wheezes - Cardiovascular Exam Cardiovascular Exam: Tachycardia, REGULAR RHYTHM, RRR, +S1, +S2. absent: JVD - GI/Abdominal Exam GI & Abdominal Exam: Normal Bowel Sounds, Soft. absent: Distended, Guarding, Rebound, Tenderness - Rectal Exam Rectal Exam: Deferred - Extremities Exam Extremities exam: normal inspection, pedal pulses present Additional comments: left hip dressing with acquacell in place - Back Exam Back exam: NORMAL INSPECTION - Neurological Exam Neurological exam: Alert, CN II-XII Intact, Oriented x3, Reflexes Normal - Psychiatric Exam Psychiatric exam: Normal Affect, Normal Mood - Skin Skin Exam: Dry, Intact, Normal Color, Warm Discharge Plan - Follow Up Plan Condition: GOOD Disposition: REHAB FACILITY/REHAB UNIT Patient education suggested?: Yes Instructions: Joint Replacement Surgery (DC) Referrals: Enrique Jules III, MD [Primary Care Provider] -
--- NOTE | 2016-12-07 11:00 | CP.PCM.PN ---
Subjective - Date & Time of Evaluation Date of Evaluation: 12/07/16 Time of Evaluation: 09:30 - Subjective Subjective: NO CHEST PAIN OR SOB FEELS BETTER Objective - Vital Signs/Intake and Output Vital Signs (last 24 hours): Temp Pulse Resp BP Pulse Ox 98.6 F 97 H 18 125/54 L 95 12/07/16 08:25 12/07/16 08:36 12/07/16 08:25 12/07/16 08:36 12/07/16 08:25 Intake and Output: 12/07/16 12/07/16 06:59 18:59 Intake Total 250 Output Total 600 Balance -350 - Medications Medications: Current Medications Albuterol/Ipratropium (Duoneb 3 Mg/0.5 Mg (3 Ml) Ud) 3 ml INH RQID [facility] Last Admin: 12/07/16 07:42 Dose: 3 ml Amlodipine Besylate (Norvasc) 5 mg PO DAILY [facility] Last Admin: 12/07/16 08:36 Dose: 5 mg Artificial Tears (Lacri-Lube) 1 applic OU TID [facility] Last Admin: 12/07/16 08:35 Dose: 1 applic Docusate Sodium (Colace) 100 mg PO BID [facility] Last Admin: 12/07/16 08:34 Dose: 100 mg Enoxaparin Sodium (Lovenox) 40 mg SC DAILY [facility] PRN Reason: Protocol Last Admin: 12/07/16 08:35 Dose: 40 mg Escitalopram Oxalate (Lexapro) 20 mg PO HS [facility] Last Admin: 12/06/16 21:18 Dose: 20 mg Guaifenesin/Dextromethorphan (Mucinex-Dm 600-30 Mg) 1 tab PO BID [facility] Last Admin: 12/07/16 08:35 Dose: 1 tab Lactated Ringer's (Lactated Ringer's) 1,000 mls @ 100 mls/hr IV .Q10H [facility] Last Admin: 12/06/16 16:46 Dose: Not Given Naloxone HCl (Narcan) 0.1 mg IVP Q2M PRN PRN Reason: Agitation Nicotine (Nicoderm Cq) 1 patch TD DAILY [facility] Last Admin: 12/07/16 08:36 Dose: 1 patch Oxycodone/Acetaminophen (Percocet 5/325 Mg Tab) 1 tab PO Q4 PRN PRN Reason: Pain, moderate (4-7) Stop: 12/08/16 13:25 Last Admin: 12/07/16 05:38 Dose: 1 tab Oxycodone/Acetaminophen (Percocet 5/325 Mg Tab) 2 tab PO Q6 PRN PRN Reason: Pain, severe (8-10) Stop: 12/08/16 13:25 Last Admin: 12/06/16 13:52 Dose: 2 tab Fluticasone/Salmeterol (Advair Diskus 250/50) 1 puff IH Q12 [facility] Last Admin: 12/07/16 08:34 Dose: 1 puff Zolpidem Tartrate (Ambien) 5 mg PO HS PRN PRN Reason: Sleep Last Admin: 12/06/16 21:17 Dose: 5 mg - Labs Labs: 12/07/16 07:30 12/06/16 04:10 - Respiratory Exam Respiratory Exam: Clear to Ausculation Bilateral - Cardiovascular Exam Cardiovascular Exam: REGULAR RHYTHM, +S1, +S2 - Additional Findings 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
[2016-12-07 12:28] VITALS: BP 124/64; PULSE 102; RESP 20; TEMP 98.5; O2SAT 93
== END 2016-12-07 14:45 | DRG 470 ==
LOC: H.OPSURG 06:16 → H.ERHOLD 13:37 → H.TEL 16:01
PROVIDERS: ADMIT Internal Medicine; ATTEND Internal Medicine
PROC: 3E0T3BZ Introduction of Anesthetic Agent into Peripheral Nerves and Plexi, Percutaneous Approach (ICD-10-PCS; 2016-12-04)
PROC: 0SRB0JA Replacement of Left Hip Joint with Synthetic Substitute, Uncemented, Open Approach (ICD-10-PCS; principal; 2016-12-04 07:45)
PROC: 3E0234Z Introduction of Serum, Toxoid and Vaccine into Muscle, Percutaneous Approach (ICD-10-PCS; 2016-12-04 07:45)
PROC: 3E0T33Z Introduction of Anti-inflammatory into Peripheral Nerves and Plexi, Percutaneous Approach (ICD-10-PCS; 2016-12-05)
DX: M16.12 Unilateral primary osteoarthritis, left hip (principal); J44.9 Chronic obstructive pulmonary disease, unspecified; I10 Essential (primary) hypertension; F32.9 Major depressive disorder, single episode, unspecified; M51.26 Other intervertebral disc displacement, lumbar region; R00.0 Tachycardia, unspecified; F17.290 Nicotine dependence, other tobacco product, uncomplicated; Z23 Encounter for immunization; Z88.6 Allergy status to analgesic agent